=== PATIENT | male | born 1985 | race Caucasian/White ===

== ENCOUNTER 2019-12-21 19:41 | Emergency (ER) | payer OTHER ==
[2019-12-21 19:50] VITALS: BP 127/67; PULSE 91; TEMP 101.7; BMI 30.7
[2019-12-21] MEDS ORDERED: IBUPROFEN 600 MG TABLET (FP) PO ONE (19:51)
--- NOTE | 2019-12-21 19:51 | PDOC ---
Rapid Medical Evaluation Chief Complaint: Cold Symptoms Time Seen by Provider: 12/21/19 19:50 Medical Evaluation: Allergies Allergy/AdvReac Type Severity Reaction Status Date / Time No Known Allergies Allergy Verified 12/21/19 19:50 Vital Signs Temp Pulse Resp BP Pulse Ox 101.7 F H 91 H 18 127/67 98 12/21/19 19:44 12/21/19 19:44 12/21/19 19:44 12/21/19 19:44 12/21/19 19:44 12/21/19 19:50 Pt presents for 2 days of flu like symptoms Exam: febrile, lungs CTAB Order: Iram Pt to proceed to the ER for further evaluation Discharge Disposition - Diagnosis Influenza - Referrals - Patient Instructions - Post Discharge Activity
[2019-12-21] MEDS ORDERED: ACETAMINOPHEN 500 MG TABLET (FP) PO ONE (20:00)
[2019-12-21] MEDS ORDERED: ACETAMINOPHEN 500 MG TABLET (FP) ONE (20:01)
--- NOTE | 2019-12-21 20:02 | PDOC ---
History of Present Illness - General Chief Complaint: Cold Symptoms Stated Complaint: COLD SYMPTOMS Time Seen by Provider: 12/21/19 19:50 - History of Present Illness Initial Comments: 12/21/19 20:01 34-year-old male with flulike symptoms x1 day Past History - Past Medical History Allergies/Adverse Reactions: Allergies Allergy/AdvReac Type Severity Reaction Status Date / Time No Known Allergies Allergy Verified 12/21/19 19:50 Home Medications: Ambulatory Orders Oseltamivir Phosphate [Tamiflu] 75 mg PO BID #10 capsule 12/21/19 - Psycho Social/Smoking Cessation Hx Smoking History: Never smoked Hx Alcohol Use: No Drug/Substance Use Hx: No Review of Systems - Review of Systems Constitutional: Yes: Chills, Diaphoresis, Fever, Malaise, Night Sweats HEENTM: Yes: Nose Congestion, Throat Pain, Difficulty Swallowing Respiratory: Yes: Cough *Physical Exam - Vital Signs Last Vital Signs Temp Pulse Resp BP Pulse Ox 101.7 F H 91 H 18 127/67 98 12/21/19 19:44 12/21/19 19:44 12/21/19 19:44 12/21/19 19:44 12/21/19 19:44 - Physical Exam 12/21/19 20:01 GENERAL: The patient is awake, alert, and fully oriented, in no acute distress. HEAD: Normal with no signs of trauma. EYES: sclera anicteric, conjunctiva clear. ENT: Ears normal tympanic membranes normal oropharynx clear uvula midline NECK: Normal range of motion LUNGS: Breath sounds equal, clear to auscultation bilaterally. No wheezes, and no crackles. HEART: S1 and S2 without murmur, rub or gallop. ABDOMEN: Soft, nontender, normoactive bowel sounds. No guarding, no rebound. No masses. EXTREMITIES: Normal range of motion, no edema. No clubbing or cyanosis. No cords, erythema, or tenderness. NEUROLOGICAL: Cranial nerves II through XII grossly intact. PSYCH: Normal mood, normal affect. SKIN: Warm, Dry, normal turgor, no rashes or lesions noted. Medical Decision Making - Medical Decision Making 12/21/19 20:01 We will treat for influenza based on history Discharge - Discharge Information Problems reviewed: Yes Clinical Impression/Diagnosis: Influenza Condition: Stable Disposition: HOME - Admission No - Follow up/Referral - Patient Discharge Instructions Additional Instructions: Tylenol Motrin as directed for fever and body aches. Return to the emergency room for worsening symptoms and without fail follow-up with your primary care physician in 1 to 2 days for further evaluation and treatment options. Please take the Tamiflu as directed. - Post Discharge Activity Work/Back to School Note: Back to Work
== END 2019-12-21 20:17 | disposition home or self-care (01) ==
LOC: JERFT 19:41
DX: J11.1 Influenza due to unidentified influenza virus with other respiratory manifestations (principal)
CPT/HCPCS: 99282-25